=== PATIENT | female | born 1930 | race Caucasian/White ===

== ENCOUNTER 2017-09-21 11:15 | Emergency (ER) | payer SELFPAY ==
--- NOTE | 2017-09-21 11:59 | RAD ---
INDICATION: Altered mental status. COMPARISON: There are no prior studies available for comparison. TECHNIQUE: Contiguous axial sections of the brain were obtained from the skull base to the vertex without contrast. FINDINGS: The ventricles, cisterns and sulci are enlarged consistent with diffuse atrophy. There are multiple focal areas of decreased density in the subcortical and periventricular white matter suggestive of moderate chronic small vessel ischemic changes. There appears be an old lacunar infarct present in the right frontal lobe adjacent to the caudate nucleus head. There is no evidence for hemorrhage. There is hyperostosis frontalis interna. The visualized portion of the paranasal sinuses appear clear. There is an effusion within the left mastoid air cells. IMPRESSION: 1. NO EVIDENCE FOR ACUTE FINDING. 2. 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 3. MODERATE CHRONIC SMALL VESSEL ISCHEMIC CHANGES. 4. EFFUSION WITHIN THE LEFT MASTOID AIR CELLS.
--- NOTE | 2017-09-21 12:09 | RAD ---
HISTORY: Altered mental status COMPARISONS: None VIEWS: 1: frontal portable view of the chest at 11:52 AM FINDINGS: LINES AND TUBES: None. CARDIOMEDIASTINAL SILHOUETTE: The cardiac silhouette is enlarged. The cardiomediastinal silhouette is otherwise normal for portable technique. PLEURA: The costophrenic angles are sharp. No pleural abnormalities are noted. LUNG PARENCHYMA: The lungs are clear. ABDOMEN: The upper abdomen is clear. There is no subphrenic gas. BONES AND SOFT TISSUES: No bone or soft tissue abnormalities are noted. IMPRESSION: CARDIOMEGALY
[2017-09-21 12:36] LABS: ABS Basophils 0 10^3/ul (0-0.2); ABS Eosinophils 0 10^3/ul (0-0.6); ABS Lymphocytes 1.1 10^3/ul (1.0-4.8); ABS Monocytes 0.7 10^3/ul (0-0.8); ABS Neutrophils 5.3 10^3/ul (1.5-7.7); ABS Nucleated RBC 0 10^3/ul; Eosinophil % 0.2 % (0-6); Hematocrit 35 % (35-47); Hemoglobin 11.8 g/dl (12.0-16.0); Mean Corpuscular HGB Conc 33 g/dl (31-36); Mean Corpuscular Hemoglobin 29 pg (27-31); Mean Corpuscular Volume 88 fL (80-97); Mean Platelet Volume 7 um3 (7.4-10.4); Nucleated Red Blood Cells % 0; Platelet Count 180 10^3/ul (150-450); Red Blood Count 4.02 10^6/ul (4.0-5.4); Red Cell Distribution Width 15 % (10.5-15); White Blood Count 7.1 10^3/ul (3.5-10.8)
[2017-09-21 12:56] LABS: EGFR Non-African American 18.6 (>60)
[2017-09-21 13:37] LABS: Urine Appearance Cloudy; Urine Blood Negative (Negative); Urine Color Yellow; Urine Ketones Negative (Negative); Urine Protein Negative (Negative); Urine Specific Gravity 1.016 (1.010-1.030); Urine Urobilinogen Negative (Negative)
[2017-09-21 14:46] VITALS: BP 112/69
--- NOTE | 2017-09-22 11:58 | ED ---
Mikayla Everett Thomas, scribed for Bryant Thompson MD on 09/21/17 at 1230 . Altered Mental Status - HPI Summary HPI Summary: The patient is an 86 year old female who was recently discharged from [facility] to [facility]. The patients daughter visited the patient in the prison this morning, and she thought that the patient had increased confusion, so she called the ambulance. In the emergency department, the patient is alert and oriented. She is not confused. She denies pain, nausea , vomiting, and diarrhea. She has a recent CHF diagnosis. - History Of Current Complaint Chief Complaint: EDGeneral Stated Complaint: POSSIBLE STROKE Hx Obtained From: Patient, EMS Onset/Duration: Resolved Severity Currently: None Character: Confusion - per daughter Aggravating Factor(s): Nothing Alleviating Factor(s): Nothing Associated Signs And Symptoms: Positive: Negative - N/V/D, confusion, pain Related History: Recent Illness - Allergies/Home Medications Home Medications: Home Medications Acetaminophen TAB* [Tylenol TAB*] 650 mg PO Q4H PRN 09/21/17 [History Confirmed 09/21/17] Amitriptyline TAB* [Elavil TAB*] 12.5 mg PO DAILY 09/21/17 [History Confirmed ] Apixaban* [Eliquis] 2.5 mg PO BID 09/21/17 [History Confirmed 09/21/17] Atorvastatin* [Lipitor*] 10 mg PO DAILY 09/21/17 [History Confirmed 09/21/17] Glycerin ADULT SUPP* 1 supp FL QAM PRN 09/21/17 [History Confirmed 09/21/17] Levothyroxine TAB* [Synthroid TAB*] 37.5 mcg PO DAILY 09/21/17 [History Confirmed 09/21/17] Magnesium Hydroxide LIQ* [Milk of Magnesia LIQ*] 30 ml PO QPM PRN 09/21/17 [ History Confirmed 09/21/17] Metoprolol Tartrate TAB* [Lopressor TAB*] 75 mg PO Q12HR 09/21/17 [History Confirmed 09/21/17] Multivitamins/Minerals TAB* [Theragran/minerals TAB*] 1 tab PO DAILY 09/21/17 [ History Confirmed 09/21/17] Psyllium BRENDA* [Metamucil BRENDA*] 1 pkt PO DAILY 09/21/17 [History Confirmed ] Sertraline* [Zoloft*] 12.5 mg PO DAILY 09/21/17 [History Confirmed 09/21/17] Sodium Phosphate ADULT ENEMA* [Fleet Enema*] 1 enema FL DAILY PRN 09/21/17 [ History Confirmed 09/21/17] amLODIPine TAB* [Norvasc 5 mg TAB*] 5 mg PO DAILY 09/21/17 [History Confirmed ] guaiFENesin ER TAB [Mucinex*] 600 mg PO BID 09/21/17 [History Confirmed 09/21/17 ] PMH/Surg Hx/FS Hx/Imm Hx Cardiovascular History: Reports: Hx Congestive Heart Failure Respiratory History: Reports: Hx Pneumonia Infectious Disease History: No Infectious Disease History: Denies: Traveled Outside the [place] in Last 30 Days - Family History Known Family History: Positive: Other - Aneuyrsm - Social History Lives: [facility] Alcohol Use: None Substance Use Type: Reports: None Smoking Status (MU): Unknown if Ever Smoked Review of Systems Negative: Fever Negative: Vomiting, Diarrhea, Nausea Negative: Other - pain Neurological: Other - Per daughter patient was confused, but no confusion in ED All Other Systems Reviewed And Are Negative: Yes Physical Exam - Summary Physical Exam Summary: VITAL SIGNS: Reviewed. GENERAL: Patient is a well-developed and nourished female who is lying comfortable in the stretcher. Patient is not in any acute respiratory distress. HEAD AND FACE: No signs of trauma. No ecchymosis, hematomas or skull depressions. No sinus tenderness. EYES: PERRLA, EOMI x 2, No injected conjunctiva, no nystagmus. EARS: Hearing grossly intact. Ear canals and tympanic membranes are within normal limits. MOUTH: Oropharynx within normal limits. NECK: Supple, trachea is midline, no adenopathy, no JVD, no carotid bruit, no c- spine tenderness, neck with full ROM. CHEST: Symmetric, no tenderness at palpation LUNGS: Clear to auscultation bilaterally. No wheezing or crackles. CVS: Regular rate and rhythm, S1 and S2 present, no murmurs or gallops appreciated. ABDOMEN: Soft, non-tender. No signs of distention. No rebound no guarding, and no masses palpated. Bowel sounds are normal. EXTREMITIES: FROM in all major joints, no edema, no cyanosis or clubbing. NEURO: Alert and oriented x 3. No acute neurological deficits. Speech is normal and follows commands. SKIN: Dry and warm Triage Information Reviewed: Yes Vital Signs On Initial Exam: Initial Vitals Temp Pulse Resp BP Pulse Ox 97.1 F 75 17 105/40 97 18 11:18 18 11:18 09/21/17 11:18 09/21/17 11:18 09/21/17 11:18 Vital Signs Reviewed: Yes Diagnostics - Vital Signs Vital Signs Temp Pulse Resp BP Pulse Ox 09/21/17 11:18 97.1 F 75 17 105/40 97 - Laboratory Result Diagrams: 09/21/17 12:15 09/21/17 12:15 Lab Statement: Any lab studies that have been ordered have been reviewed, and results considered in the medical decision making process. - Radiology CXR Xray Interpretation: No Acute Changes - Cardiomegaly. Dr. Thompson has reviewed this report. Radiology Interpretation Completed By: Radiologist - CT CT Brain CT Interpretation: No Acute Changes - 1. NO EVIDENCE FOR ACUTE FINDING. 2. 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 3. MODERATE CHRONIC SMALL VESSEL ISCHEMIC CHANGES. 4. EFFUSION WITHIN THE LEFT MASTOID AIR CELLS. Dr. Thompson has reviewed this report. CT Interpretation Completed By: Radiologist - EKG 12:09 Cardiac Rate: NL EKG Rhythm: Atrial Fibrillation - at 67 BPM EKG Interpretation: No ST elevations. ST depression in V5, V6. Re-Evaluation - Re-Evaluation First Eval Re-Evaluation Time: 14:33 Change: Unchanged Comment: The patient's creatinine at her other hospital was between 1.9-2.1. Altered Mental Statu Course/Dx - Course Assessment/Plan: The patient is an 86 year old female who was recently discharged from [facility] to [facility]. The patient s daughter visited the patient in the prison this morning, and she thought that the patient had increased confusion, so she called the ambulance. In the emergency department, the patient is alert and oriented. She is not confused. She denies pain, nausea, vomiting, and diarrhea. She has a recent CHF diagnosis. Test results are without any significant abnormality except acute on chronic renal failure. The patients daughter reports her usual creatinine is between 1.9 and 2.1. Today, the patients troponin is 2.4. The patient was given gentle hydration. She is alert and oriented x3. The patient is ambulating without any difficulty and has no confusion. Therefore, I discussed the findings and test results with the patient and her daughter. The patient will be discharged home to follow up with primary care. The patient is hemodynamically stable and alert and oriented x3. - Diagnoses Provider Diagnoses: Dehydration, Chronic renal failure Discharge - Discharge Plan Condition: Stable Disposition: HOME Patient Education Materials: Dehydration (ED), Chronic Kidney Disease (ED) Referrals: Lazaro Vieira MD [Primary Care Provider] - 3 Days Additional Instructions: Follow up with your primary care physician in three days. Return to the emergency department for any new or worsening symptoms. The documentation as recorded by the Mikayla sargent Thomas accurately reflects the service I personally performed and the decisions made by me, Bryant Thompson MD.
== END 2017-09-21 14:45 | disposition home or self-care (01) ==
LOC: ED 11:15
DX: E86.0 Dehydration (principal); N18.9 Chronic kidney disease, unspecified
CPT/HCPCS: 36415; 70450; 71045; 80053; 81003; 82140; 82550; 83605; 83735; 84443; 84484; 85025; 93005; 99283